=== PATIENT | female | born 1980 | race Two or more races ===

== ENCOUNTER 2017-11-13 23:12 | Emergency (ER) | payer SELFPAY ==
[2017-11-13 23:52] LABS: URINE HCG POC HCG POSITIVE (Negative)
[2017-11-13 23:57] LABS: BILIRUBIN,URINE NEGATIVE (NEG); CLARITY,URINE CLEAR; COLOR,URINE YELLOW; GLUCOSE,URINE NEGATIVE (NEG); NITRITE,URINE NEGATIVE (NEG); PH,URINE 6.5; PROTEIN,URINE NEGATIVE (NEG-TRACE); UROBILINOGEN,URINE 0.2 mg/dL (0.2 mg/dL)
[2017-11-14 00:14] LABS: BACTERIA,URINE MODERATE /HPF (0-FEW); RBC,URINE 0 /HPF (0-2); SQUAMOUS EPITHELIAL CELL,UR FEW /LPF
[2017-11-14] MEDS: IV NORMAL SALINE 1000ML BAG 1,000 ML IV (00:19)
[2017-11-14] MEDS: ONDANSETRON PF 4 MG/2 ML VIAL. IV (00:19)
[2017-11-14 00:26] LABS: ADD MAN DIFF? NO
[2017-11-14 00:31] LABS: BASO % 0 % (0-3); EOS # 0.1 x10^3/uL (0.0-0.7); EOS % 1 % (0-3); HEMATOCRIT 35.9 % (36.0-47.0); HEMOGLOBIN 12.2 g/dL (12.0-15.5); LYMPH # 2.9 x10^3/uL (1.0-4.8); LYMPH % 26 % (24-48); MEAN CORPUSCULAR HEMOGLOBIN 31 pg (25-35); MEAN CORPUSCULAR HGB CONC 34 g/dL (31-37); MEAN CORPUSCULAR VOLUME 90 fL (79-100); MONO # 0.9 x10^3/uL (0.0-1.1); MONO % 8 % (0-9); NEUT # 7.2 x10^3uL (1.8-7.7); NEUT % 65 % (31-73); PLATELET COUNT 321 x10^3/uL (140-400); RED BLOOD COUNT 3.98 x10^6/uL (3.50-5.40); RED CELL DISTRIBUTION WIDTH 13.9 % (11.5-14.5); WHITE BLOOD COUNT 11.1 x10^3/uL (4.0-11.0)
[2017-11-14 00:38] LABS: ANION GAP 8 (6-14); BLOOD UREA NITROGEN 13 mg/dL (7-20); BUN/CREATININE RATIO 16 (6-20); CARBON DIOXIDE 28 mmol/L (21-32); CHLORIDE 102 mmol/L (98-107); CREATININE 0.8 mg/dL (0.6-1.0); GFR 79.9; GLUCOSE 98 mg/dL (70-99); SODIUM 138 mmol/L (136-145)
[2017-11-14 00:44] LABS: ALBUMIN 3.5 g/dL (3.4-5.0); ALBUMIN/GLOBULIN RATIO 0.9 (1.0-1.7); ALK PHOS 86 U/L (46-116); ALT (SGPT) 19 U/L (14-59); AST (SGOT) 11 U/L (15-37); TOTAL BILIRUBIN 0.2 mg/dL (0.2-1.0); TOTAL PROTEIN 7.6 g/dL (6.4-8.2)
== END 2017-11-14 00:45 | disposition home or self-care (01) ==
LOC: ER 23:12
DX: O23.41 Unspecified infection of urinary tract in pregnancy, first trimester (principal); Z98.51 Tubal ligation status; Z90.49 Acquired absence of other specified parts of digestive tract; Z88.8 Allergy status to other drugs, medicaments and biological substances
CPT/HCPCS: 36415; 76801; 80053; 81001; 81025; 85025; 87086; 96374; 99281; 99285-25; J2405; J7030

== ENCOUNTER 2017-12-14 16:30 | Emergency (ER) | payer SELFPAY ==
[2017-12-14 17:13] LABS: ADD MAN DIFF? NO
[2017-12-14] MEDS: ONDANSETRON PF 4 MG/2 ML VIAL. IV (17:13)
[2017-12-14] MEDS: HYDROcodone/APAP 5/325MG 1 TAB TABLET PO (17:15)
[2017-12-14 17:17] LABS: BASO % 0 % (0-3); BILIRUBIN,URINE NEGATIVE (NEG); CLARITY,URINE CLEAR; COLOR,URINE YELLOW; EOS % 1 % (0-3); GLUCOSE,URINE NEGATIVE (NEG); HEMATOCRIT 36.6 % (36.0-47.0); HEMOGLOBIN 12.8 g/dL (12.0-15.5); LYMPH % 20 % (24-48); MEAN CORPUSCULAR HEMOGLOBIN 32 pg (25-35); MEAN CORPUSCULAR HGB CONC 35 g/dL (31-37); MEAN CORPUSCULAR VOLUME 90 fL (79-100); MONO # 0.8 x10^3/uL (0.0-1.1); MONO % 8 % (0-9); NEUT # 7.1 x10^3uL (1.8-7.7); NEUT % 71 % (31-73); NITRITE,URINE NEGATIVE (NEG); PLATELET COUNT 294 x10^3/uL (140-400); PROTEIN,URINE NEGATIVE (NEG-TRACE); RED BLOOD COUNT 4.06 x10^6/uL (3.50-5.40); RED CELL DISTRIBUTION WIDTH 13.7 % (11.5-14.5); UROBILINOGEN,URINE 0.2 mg/dL (0.2 mg/dL); WHITE BLOOD COUNT 9.9 x10^3/uL (4.0-11.0)
[2017-12-14 17:27] LABS: ANION GAP 9 (6-14); BLOOD UREA NITROGEN 8 mg/dL (7-20); BUN/CREATININE RATIO 11 (6-20); CALCIUM 9.5 mg/dL (8.5-10.1); CARBON DIOXIDE 24 mmol/L (21-32); CHLORIDE 101 mmol/L (98-107); CREATININE 0.7 mg/dL (0.6-1.0); GFR 93.2; GLUCOSE 105 mg/dL (70-99); POTASSIUM 3.4 mmol/L (3.5-5.1); SODIUM 134 mmol/L (136-145)
[2017-12-14 17:32] LABS: BACTERIA,URINE FEW /HPF (0-FEW); RBC,URINE OCC /HPF (0-2); SQUAMOUS EPITHELIAL CELL,UR MOD /LPF; WBC,URINE OCC /HPF (0-4)
[2017-12-14 17:33] LABS: ALBUMIN 3.2 g/dL (3.4-5.0); ALBUMIN/GLOBULIN RATIO 0.7 (1.0-1.7); ALK PHOS 80 U/L (46-116); ALT (SGPT) 13 U/L (14-59); AST (SGOT) 10 U/L (15-37); TOTAL BILIRUBIN 0.2 mg/dL (0.2-1.0); TOTAL PROTEIN 7.5 g/dL (6.4-8.2)
[2017-12-14] MEDS: IV NORMAL SALINE 1000ML BAG 1,000 ML IV (19:24)
== END 2017-12-14 20:24 | disposition home or self-care (01) ==
LOC: ER 20:24
DX: O26.891 Other specified pregnancy related conditions, first trimester (principal); G43.909 Migraine, unspecified, not intractable, without status migrainosus; Z88.6 Allergy status to analgesic agent; Z90.49 Acquired absence of other specified parts of digestive tract; Z98.51 Tubal ligation status; Z3A.11 11 weeks gestation of pregnancy
CPT/HCPCS: 36415; 76801; 80053; 81001; 84702; 85025; 96374; 99285-25; J2405; J7030

== ENCOUNTER 2018-06-12 03:48 | Observation (INO) | payer SELFPAY ==
[2017-12-14 19:41] VITALS: BP 98/57
[~2018-06-12 03:48] MED LIST: NITR100C62 PO; ONDA4TAB12 PO
[2018-06-12] MEDS ORDERED: IV RINGERS,LACTATED 1000ML 1,000 ML IV SCH (04:30)
[2018-06-12 06:19] LABS: BILIRUBIN,URINE NEGATIVE (NEG); CLARITY,URINE CLEAR; COLOR,URINE YELLOW; NITRITE,URINE NEGATIVE (NEG); PROTEIN,URINE NEGATIVE (NEG-TRACE); UROBILINOGEN,URINE 0.2 mg/dL (0.2 mg/dL)
[2018-06-12 06:26] LABS: SQUAMOUS EPITHELIAL CELL,UR MOD /LPF
[2018-06-12 06:28] LABS: BACTERIA,URINE 0 /HPF (0-FEW); RBC,URINE 0 /HPF (0-2)
[2018-06-12] MEDS ORDERED: hydrOXYzine PAMOATE 25 MG CAPSULE PO PRN (09:45)
== END 2018-06-12 10:00 | disposition home or self-care (01) ==
LOC: 3 SO LND 03:48
PROVIDERS: ADMIT Family Medicine; ATTEND Family Medicine
DX: O26.893 Other specified pregnancy related conditions, third trimester (principal); R10.2 Pelvic and perineal pain; O24.419 Gestational diabetes mellitus in pregnancy, unspecified control; Z3A.37 37 weeks gestation of pregnancy
CPT/HCPCS: 81001; G0378; G0379; Q0177

== ENCOUNTER 2018-06-15 11:07 | Observation (INO) | payer SELFPAY ==
[2017-12-14 19:41] VITALS: BP 98/57
[2018-06-15] MEDS ORDERED: IV RINGERS,LACTATED 1000ML 1,000 ML IV SCH (12:00)
[2018-06-15 12:43] LABS: BILIRUBIN,URINE NEGATIVE (NEG); CLARITY,URINE CLEAR; COLOR,URINE YELLOW; NITRITE,URINE NEGATIVE (NEG); PH,URINE 6.5; PROTEIN,URINE NEGATIVE (NEG-TRACE); UROBILINOGEN,URINE 0.2 mg/dL (0.2 mg/dL)
[2018-06-15 12:52] LABS: BACTERIA,URINE 0 /HPF (0-FEW); RBC,URINE 0 /HPF (0-2); SQUAMOUS EPITHELIAL CELL,UR MOD /LPF; WBC,URINE 0 /HPF (0-4)
--- NOTE | 2018-06-15 13:52 | RAD ---
Indication: Decreased movement. TECHNIQUE: Ultrasound for biophysical profile. COMPARISON: None FINDINGS: Single intrauterine seen in cephalic presentation. The heart rate is 153 bpm. Four-chamber heart is seen. Amniotic fluid index of 13.6 cm. Femoral length measures 7.22 cm corresponding to gestation age of 37 weeks 0 day. Abdominal circumference measures 33.86 m corresponding to gestation age of 37 weeks 5 days. Biparietal diameter measures 9.40 cm corresponding to gestation age of 38 weeks 2 days. Head circumference measures 33.14 cm corresponding to gestation age of 37 weeks 5 days. Placenta is anterior and fundal in position. Biophysical profile score: breathing movement movement 2 out of 2. motion 2 out of 2. tone 2 out of 2. Amniotic fluid volume 2 out of 2. Length of exam 25 minutes. Estimated weight of 3267 g. IMPRESSION: 1. Biophysical profile score 8 out of 8. 2. Single live viable intrauterine with estimated gestation age of 37 weeks 5 days and due date of 07/01/2018. Electronically signed by: Eric Worthington DO (06/15/2018 1:48 PM) [facility]
== END 2018-06-15 14:10 | disposition home or self-care (01) ==
LOC: 3 SO LND 11:07
PROVIDERS: ADMIT Specialist; ATTEND Specialist
DX: O36.8130 Decreased fetal movements, third trimester, not applicable or unspecified (principal); O24.419 Gestational diabetes mellitus in pregnancy, unspecified control; Z3A.37 37 weeks gestation of pregnancy
CPT/HCPCS: 76819; 81001; 82962; G0378; G0379

== ENCOUNTER 2020-03-29 23:46 | Emergency (ER) | payer SELFPAY ==
[~2020-03-29] VITALS: Ht 162.6 cm; Wt 63.0 kg
[~2020-03-29 23:46] MED LIST changes: +NAPR-514 PO; +OXYC-325 PO
[2020-03-30 01:13] LABS: BILIRUBIN,URINE NEGATIVE (NEG); CLARITY,URINE CLEAR; COLOR,URINE YELLOW; NITRITE,URINE NEGATIVE (NEG); PH,URINE 7.5 (<5.0-8.0); PROTEIN,URINE NEGATIVE (NEG-TRACE); UROBILINOGEN,URINE 0.2 mg/dL (0.2 mg/dL)
[2020-03-30 01:23] LABS: BACTERIA,URINE MODERATE /HPF (0-FEW)
[2020-03-30] MEDS ORDERED: MORPHINE SULFATE 4 MG/ML VIAL. IV ONE (01:30)
[2020-03-30] MEDS ORDERED: METOCLOPRAMIDE HCL 10 MG/2 ML VIAL. IVP ONE (01:30)
[2020-03-30] MEDS ORDERED: IV NORMAL SALINE 1000ML BAG 1,000 ML IV SCH (01:30)
[2020-03-30 02:04] LABS: BASO # 0.1 x10^3/uL (0.0-0.2); BASO % 0 % (0-3); EOS # 0.1 x10^3/uL (0.0-0.7); EOS % 1 % (0-3); HEMATOCRIT 36.1 % (36.0-47.0); HEMOGLOBIN 12.1 g/dL (12.0-15.5); LYMPH # 3.2 x10^3/uL (1.0-4.8); LYMPH % 21 % (24-48); MEAN CORPUSCULAR HEMOGLOBIN 29 pg (25-35); MEAN CORPUSCULAR HGB CONC 34 g/dL (31-37); MEAN CORPUSCULAR VOLUME 88 fL (79-100); MONO # 1.2 x10^3/uL (0.0-1.1); MONO % 8 % (0-9); NEUT # 10.8 x10^3/uL (1.8-7.7); NEUT % 70 % (31-73); PLATELET COUNT 392 x10^3/uL (140-400); RED BLOOD COUNT 4.12 x10^6/uL (3.50-5.40); RED CELL DISTRIBUTION WIDTH 13.9 % (11.5-14.5); WHITE BLOOD COUNT 15.4 x10^3/uL (4.0-11.0)
[2020-03-30 02:19] LABS: CALCIUM 9.5 mg/dL (8.5-10.1); CREATININE 0.9 mg/dL (0.6-1.0)
[2020-03-30 02:25] LABS: ALBUMIN 3.7 g/dL (3.4-5.0); ALBUMIN/GLOBULIN RATIO 0.9 (1.0-1.7); TOTAL BILIRUBIN 0.2 mg/dL (0.2-1.0); TOTAL PROTEIN 7.8 g/dL (6.4-8.2)
[2020-03-30] MEDS ORDERED: CONTRAST GIVEN. MC PRN (02:30)
[2020-03-30] MEDS ORDERED: IOHEXOL 300 MG/ML 100ML VIAL. IV ONE (03:00)
--- NOTE | 2020-03-30 03:20 | RAD ---
CT abdomen and pelvis with contrast PQRS statement: CT scans at this facility use dose reduction including either automated exposure control, iterative reconstructions, and /or weight based radiation dosing via mA and kV modification when appropriate to reduce radiation dose to as low as reasonably achievable. Contrast: 75 mL Omnipaque 300 intravenous contrast. HISTORY: Left upper quadrant abdominal pain. Abdomen findings: Cholecystectomy. Liver, pancreas, spleen, adrenal glands and kidneys are unremarkable. Appendix is negative. Moderate volume of stool. No obstruction or inflammatory change of the upper GI tract. No abdominal fluid or enlarged adenopathy. Reactive right lower quadrant mesenteric lymph nodes. Pelvis findings: Patent stranding about the distal sigmoid colon antimesenteric border with a 2 cm ovoid fat focus with surrounding edema may be epiploic meningitis no perforated diverticulum evident. Posterior of the inflammatory changes there is a 2.5 cm hypodensity left ovary. Small volume of pelvic fluid. Right ovary, uterus, bladder, rectum and bones are unremarkable. IMPRESSION: 1. Edema surrounding an ovoid fatty focus adjacent of the antimesenteric wall of the distal sigmoid colon, likely acute epiploic appendagitis. 2. Adjacent of the inflamed epiploic fat there is a 2.5 cm hypodensity left ovary could be a dominant follicle or cyst. This could be further assessed with sonography. Inflammatory changes due to the left adnexal cystic lesion is a secondary consideration. 3. The appendix is negative. Electronically signed by: Benitez Nelson MD (03/30/2020 3:17 AM) [facility]
--- NOTE | 2020-03-30 03:39 | PHYS DOC ---
Past Medical History Past Medical History: Ectopic , Migraines, Other Additional Past Medical Histor: ectopic Past Surgical History: Cholecystectomy, Tubal ligation Smoking Status: Never Smoker Alcohol Use: None Drug Use: None General Adult EDM: Chief Complaint: ABDOMINAL PAIN HPI: HPI: 39-year-old (1 ectopic) F who denies any past medical history, presents the ED with complaints of left lower quadrant sharp abdominal pain that radiates to her suprapubic region that started yesterday with associated nausea, some relief with Tylenol. Last menstrual period was in February. Last bowel movement was yesterday, normal brown color but reports she suffers from constipation. Past surgical history right oophorectomy, tubal ligation and cholecystectomy. No underlying GI diagnoses. Takes no daily routine medications. Review of Systems: Review of Systems: Constitutional: Denies fever or chills. [] Eyes: Denies change in visual acuity. [] HENT: Denies nasal congestion or sore throat. [] Respiratory: Denies cough or shortness of breath. [] Cardiovascular: Denies chest pain or edema. [] GI: Denies melena, hematochezia, hematemesis, vomiting, diarrhea. [] : Denies dysuria. [] Or hematuria or vaginal bleeding or abnormal vaginal itching discharge or odor Musculoskeletal: Denies back pain or joint pain. [] Integument: Denies rash. [] Neurologic: Denies headache, focal weakness or sensory changes. [] Endocrine: Denies polyuria or polydipsia. [] Lymphatic: Denies swollen glands. [] Psychiatric: Denies depression or anxiety. [] Heart Score: Risk Factors: Risk Factors: DM, Current or recent (<one month) smoker, HTN, HLP, family history of CAD, obesity. Risk Scores: Score 0 - 3: 2.5% MACE over next 6 weeks - Discharge Home Score 4 - 6: 20.3% MACE over next 6 weeks - Admit for Clinical Observation Score 7 - 10: 72.7% MACE over next 6 weeks - Early Invasive Strategies Current Medications: Current Medications Medications (Trade) Dose Ordered Sig/Aviva Start Time Stop Time Status Last Admin Dose Admin Info (CONTRAST GIVEN -- Rx MONITORING) 1 each PRN DAILY PRN 03/30/20 02:30 04/01/20 02:29 Iohexol (Omnipaque 300 Mg/ml) 75 ml 1X ONCE 03/30/20 03:00 03/30/20 03:01 DC 03/30/20 02:40 75 ML Metoclopramide HCl (Reglan Vial) 10 mg 1X ONCE 03/30/20 01:30 03/30/20 01:31 DC 03/30/20 01:42 10 MG Morphine Sulfate (Morphine Sulfate) 4 mg 1X ONCE 03/30/20 01:30 03/30/20 01:31 DC 03/30/20 01:43 4 MG Sodium Chloride 1,000 ml @ 1,000 mls/hr Q1H 03/30/20 01:30 03/30/20 02:29 DC 03/30/20 01:42 1,000 MLS/HR Allergies: Allergies: Allergies Coded Allergies Type Severity Reaction Last Updated Verified No Known Medication Allergies Allergy Unknown 06/25/18 Yes ibuprofen Adverse Reaction Intermediate 06/25/18 Yes Physical Exam: PE: Constitutional: Well developed, well nourished, no acute distress, non-toxic appearance. [] HENT: Normocephalic, atraumatic, oropharynx moist, Eyes: EOMI, conjunctiva normal, no discharge. [] Neck: Normal range of motion, , supple, no stridor. [] Cardiovascular:Heart rate regular rhythm, no murmur [] Lungs & Thorax: Bilateral breath sounds clear to auscultation [] Abdomen: Bowel sounds normal, soft, +LLQ tenderness, no masses, no pulsatile masses. [] Skin: Warm, dry, no erythema, no rash. [] Back: No tenderness, no CVA tenderness. [] Extremities: No tenderness, no cyanosis, no clubbing, ROM intact, no edema. [] Neurologic: Alert and oriented X 3, normal motor function, normal sensory function, no focal deficits noted. [] Psychologic: Affect normal, judgement normal, mood normal. [] Current Patient Data: Labs: Laboratory Tests Test 03/30/20 00:00 03/30/20 00:44 03/30/20 01:45 Urine Collection Type Unknown Urine Color Yellow Urine Clarity Clear Urine pH 7.5 (<5.0-8.0) Urine Specific [place] 1.010 (1.000-1.030) Urine Protein Negative mg/dL (NEG-TRACE) Urine Glucose (UA) Negative mg/dL (NEG) Urine Ketones (Stick) Negative mg/dL (NEG) Urine Blood Negative (NEG) Urine Nitrite Negative (NEG) Urine Bilirubin Negative (NEG) Urine Urobilinogen Dipstick 0.2 mg/dL (0.2 mg/dL) Urine Leukocyte Esterase Negative (NEG) Urine RBC 1-2 /HPF (0-2) Urine WBC 1-4 /HPF (0-4) Urine Squamous Epithelial Cells Few /LPF Urine Bacteria Moderate /HPF (0-FEW) POC Urine HCG, Qualitative Hcg negative (Negative) White Blood Count 15.4 x10^3/uL (4.0-11.0) H Red Blood Count 4.12 x10^6/uL (3.50-5.40) Hemoglobin 12.1 g/dL (12.0-15.5) Hematocrit 36.1 % (36.0-47.0) Mean Corpuscular Volume 88 fL (79-100) Mean Corpuscular Hemoglobin 29 pg (25-35) Mean Corpuscular Hemoglobin Concent 34 g/dL (31-37) Red Cell Distribution Width 13.9 % (11.5-14.5) Platelet Count 392 x10^3/uL (140-400) Neutrophils (%) (Auto) 70 % (31-73) Lymphocytes (%) (Auto) 21 % (24-48) L Monocytes (%) (Auto) 8 % (0-9) Eosinophils (%) (Auto) 1 % (0-3) Basophils (%) (Auto) 0 % (0-3) Neutrophils # (Auto) 10.8 x10^3/uL (1.8-7.7) H Lymphocytes # (Auto) 3.2 x10^3/uL (1.0-4.8) Monocytes # (Auto) 1.2 x10^3/uL (0.0-1.1) H Eosinophils # (Auto) 0.1 x10^3/uL (0.0-0.7) Basophils # (Auto) 0.1 x10^3/uL (0.0-0.2) Sodium Level 139 mmol/L (136-145) Potassium Level 4.0 mmol/L (3.5-5.1) Chloride Level 104 mmol/L (98-107) Carbon Dioxide Level 26 mmol/L (21-32) Anion Gap 9 (6-14) Blood Urea Nitrogen 11 mg/dL (7-20) Creatinine 0.9 mg/dL (0.6-1.0) Estimated GFR (Cockcroft-Gault) 69.0 BUN/Creatinine Ratio 12 (6-20) Glucose Level 113 mg/dL (70-99) H Calcium Level 9.5 mg/dL (8.5-10.1) Total Bilirubin 0.2 mg/dL (0.2-1.0) Aspartate Amino Transferase (AST) 11 U/L (15-37) L Alanine Aminotransferase (ALT) 17 U/L (14-59) Alkaline Phosphatase 85 U/L (46-116) Total Protein 7.8 g/dL (6.4-8.2) Albumin 3.7 g/dL (3.4-5.0) Albumin/Globulin Ratio 0.9 (1.0-1.7) L Lipase 101 U/L (73-393) Laboratory Tests 03/30/20 01:45 Laboratory Tests 03/30/20 01:45 Vital Signs: Vital Signs Date Time Temp Pulse Resp B/P (MAP) Pulse Ox O2 Delivery O2 Flow Rate FiO2 03/30/20 01:43 18 97 Room Air 03/30/20 00:20 98.5 84 114/60 (78) 98.5 EKG: EKG: [] Radiology/Procedures: Radiology/Procedures: IMAGING REPORT Signed PATIENT: MARIA R PINKCCOUNT: [id number] : 1980 LOCATION: ER AGE: 39 SEX: F EXAM STATUS: REG ER ORD. PHYSICIAN: MALIA LOMBARDO DO REASON: llq pain PROCEDURE: CT ABD PELV W/ IV CONTRST ONLY CT abdomen and pelvis with contrast PQRS statement: CT scans at this facility use dose reduction including either automated exposure control, iterative reconstructions, and /or weight based radiation dosing via mA and kV modification when appropriate to reduce radiation dose to as low as reasonably achievable. Contrast: 75 mL Omnipaque 300 intravenous contrast. HISTORY: Left upper quadrant abdominal pain. Abdomen findings: Cholecystectomy. Liver, pancreas, spleen, adrenal glands and kidneys are unremarkable. Appendix is negative. Moderate volume of stool. No obstruction or inflammatory change of the upper GI tract. No abdominal fluid or enlarged adenopathy. Reactive right lower quadrant mesenteric lymph nodes. Pelvis findings: Patent stranding about the distal sigmoid colon antimesenteric border with a 2 cm ovoid fat focus with surrounding edema may be epiploic meningitis no perforated diverticulum evident. Posterior of the inflammatory changes there is a 2.5 cm hypodensity left ovary. Small volume of pelvic fluid. Right ovary, uterus, bladder, rectum and bones are unremarkable. IMPRESSION: 1. Edema surrounding an ovoid fatty focus adjacent of the antimesenteric wall of the distal sigmoid colon, likely acute epiploic appendagitis. 2. Adjacent of the inflamed epiploic fat there is a 2.5 cm hypodensity left ovary could be a dominant follicle or cyst. This could be further assessed with sonography. Inflammatory changes due to the left adnexal cystic lesion is a secondary consideration. 3. The appendix is negative. Electronically signed by: Mary Lepe MD (03/30/2020 3:17 AM) [facility] [place]CTATED and SIGNED BY: MARY LEPE MD DATE: 03/30/20316 Course & Med Decision Making: Course & Med Decision Making Pertinent Labs and Imaging studies reviewed. (See chart for details) Concern for sudden onset LLQ pain and nausea. Patient afebrile with mild leukocytosis of 15, no tachycardia. CT abdomen pelvis with contrast concerning for likely acute epiploic appendagitis, normal appendix, possible left ovarian follicle or cyst. speaks Kazakh and translated for patient- was able to type diagnosis on his phone so he could read more about this illness. Educated treatment was analgesia, symptoms usually resolve within 2 weeks, it is very rare to have surgery for this condition. Will prescribe short-term dosage of Percocet and was educated on sedative effects, risk of addiction and adverse effect of constipation, to start fiber and Colace. Will also add Motrin 600 mg to this. Pt calm, ambulated in no distress, no active emesis. Strict ED return precautions were given for severe abdominal or back pain, fever, red or black stools. Encouraged urgent outpatient follow-up with PMD and surgery. Life- threatening processes were considered but are low suspicion at this time, given history and physical exam. Pt was educated on all prescription medications and adverse effects. All patient's questions were answered and pt was stable at time of discharge. Life/limb-threatening differential includes but is not limited to, aortic dissection, aortic aneurysm, acute coronary syndrome, surgical abdomen (appendicitis, cholecystitis, ischemic bowel, strangulated hernia, etc), bowel obstruction or volvulus, bladder outlet obstruction, gastrointestinal bleeding, inflammatory bowel disease, peptic ulcer disease, sepsis, diverticular disease, ureterolithiasis, nephrolithiasis, ovarian or testicular torsion, ectopic , vaginal hemorrhage, or genitourinary infection. I spoken with the patient and her caregivers. I explained the patient's condition, diagnoses and treatment plan based on the information available to me at this time. I have answered the patient and her caregiver's questions and addressed any concerns. The patient and her caregivers have a good understanding of patient's diagnosis, condition and treatment plan as can be expected at this point. Vital signs have been stable. Patient's condition is stable and appropriate for discharge from the emergency department. Patient will pursue further outpatient evaluation with primary care physician or other designated or consulting physician as outlined in the discharge instructions. The patient and/or caregivers are agreeable to this plan of care and follow-up instructions have been explained in detail. The patient and/or caregivers have received these instructions in written form and have expressed an understanding of the discharge instructions. The patient and/or caregivers are aware that any significant change of condition or worsening of symptoms should prompt immediate return to this or the closest emergency department or call to 911. Toni Disclaimer: Toni Disclaimer: This electronic medical record was generated, in whole or in part, using a voice recognition dictation system. Departure Departure Impression: Primary Impression: Epiploic appendagitis Additional Impression: LLQ pain Disposition: 01 DC HOME SELF CARE/HOMELESS Condition: STABLE Referrals: NO PCP (PCP) FOLLOW UP WITH FAMILY MEDICINE: Family Medicine Address: [address] [facility], [facility] [address] [place] [address] Patient Instructions: Abdominal Pain Additional Instructions: FOLLOW UP WITH SURGERY: [facility] General Surgery Address: [address], [address] [place] [address] EMERGENCY DEPARTMENT GENERAL DISCHARGE INSTRUCTIONS Thank you for coming to [facility] Emergency Department (ED) today and trusting us with you care. We trust that you had a positive experience in our Emergency Department. If you wish to speak to the department management, you may call the Director at [phone]. YOUR FOLLOW UP INSTRUCTIONS ARE FOLLOWS: 1. Do you have a private Doctor? If you do not have a private doctor, please ask for a resource list of physicians or clinics that may be able to assist you with follow up care. 2. The Emergency Physicain has interpreted your x-rays. The X-Ray specialist will also review them. If there is a change in the findings, you will be notified in 48 hours when at all possible. 3. A lab test or culture has been done, your results will be reviewed and you will be notified if you need a change in treatment. ADDITIONAL INSTRUCTIONS AND INFORMATION: 1. Your care today has been supervised by a physician who is specially trained in emergency care. Many problems require more than one evaluation for a complete diagnosis and treatment. We recommend that you schedule your follow up appointment as recommended to ensure complete treatment of you illness or injury. If you are unable to obtain follow up care and continue to have a problem, or if your condition worsens, we recommend that you return to the ED. 2. We are not able to safely determine your condition over the phone nor are we able to give sound medical advice over the phone. For these safety reasons, if you call for medical advice we will ask you to come to the ED for further evaluation. 3. If you have any questions regarding these discharge instructions please call the ED at [phone]. SAFETY INFORMATION: In the interest of safety, wellness, and injury prevention; we encourage you to wear your sealbelt, if you smoke; quite smoking, and we encourage family to use a protective helmet for bicycling and other sporting events that present an increased risk for head injury. IF YOUR SYMPTOMS WORSEN OR NEW SYMPTOMS DEVELOP, OR YOU HAVE CONCERNS ABOUT YOUR CONDITION; OR IF YOUR CONDITION WORSENS WHILE YOU ARE WAITING FOR YOUR FOLLOW UP APPOINTMENT; EITHER CONTACT YOUR PRIMARY CARE DOCTOR, THE PHYSICIAN WHOSE NAME AND NUMBER YOU WERE GIVEN, OR RETURN TO THE ED IMMEDIATELY. Scripts Oxycodone/Apap 5-325 (PERCOCET 5-325 MG TABLET ) 1 Each Tablet 1 TAB PO PRN Q6HRS PRN for PAIN for 4 Days, #16 TAB 0 Refills Prov: MALIA LOMBARDO DO 03/30/20 [facility] Mar 30, 2020 03:39
[2020-03-30] MEDS ORDERED: KETOROLAC 15 MG/ML VIAL. IVP ONE (04:00)
[2020-03-30] MEDS ORDERED: OXYC1TAB15 PO (04:44)
[2020-03-30 05:00] VITALS: BP 102/53
== END 2020-03-30 05:04 | disposition home or self-care (01) ==
LOC: ER 23:46
DX: K63.89 Other specified diseases of intestine (principal); R10.32 Left lower quadrant pain; R11.0 Nausea; G43.909 Migraine, unspecified, not intractable, without status migrainosus; Z90.49 Acquired absence of other specified parts of digestive tract; Z98.51 Tubal ligation status; Z88.6 Allergy status to analgesic agent
CPT/HCPCS: 36415; 74177; 80053; 81001; 81025; 83690; 85025; 87086; 96361; 96374; 96375; 99285; J1885; J2270; J2765; J7030; Q9967